=== PATIENT | female | born 1950 | race Two or more races ===

== ENCOUNTER 2024-06-01 14:30 | Emergency (ER) | payer MEDICARE, BC ==
[~2024-06-01] VITALS: Ht 157.5 cm; Wt 73.9 kg
[2024-06-01 14:38] VITALS: PULSE 78; RESP 20; TEMP 98.6; O2SAT 98
[2024-06-01] MEDS ORDERED: CIPRO HC OTIC S10 ML LEFT EAR (15:14)
== END 2024-06-01 15:19 | disposition home or self-care (01) ==
LOC: FSED 15:13
DX: H60.92 Unspecified otitis externa, left ear (principal); H60.542 Acute eczematoid otitis externa, left ear; I10 Essential (primary) hypertension; E78.5 Hyperlipidemia, unspecified; J45.909 Unspecified asthma, uncomplicated
CPT/HCPCS: 99284

== ENCOUNTER 2024-06-05 17:10 | Emergency (ER) | payer MEDICARE, BC ==
[~2024-06-05] VITALS: Ht 157.5 cm; Wt 73.9 kg
[~2024-06-05 17:10] MED LIST: CIPRO HC OTIC S10 ML LEFT EAR
[2024-06-05 17:19] VITALS: PULSE 81; RESP 18; TEMP 98.1
[2024-06-05] MEDS ORDERED: VENTOLIN HFA18 GM INH (17:38)
[2024-06-05] MEDS: ALBUTEROL/IPRATROPIUM 3 ML NEB NEB ONE (18:01)
[2024-06-05 18:21] VITALS: BP 155/81; PULSE 78; RESP 18; O2SAT 98
== END 2024-06-05 18:23 | disposition home or self-care (01) ==
LOC: FSED 17:16
DX: J45.909 Unspecified asthma, uncomplicated (principal); I10 Essential (primary) hypertension; E78.5 Hyperlipidemia, unspecified; Z85.89 Personal history of malignant neoplasm of other organs and systems
CPT/HCPCS: 99282